=== PATIENT | female | born 1945 | race Caucasian/White ===

== ENCOUNTER 2020-01-08 23:25 | Emergency (ER) | payer MEDICARE, BC ==
[2020-01-08] MEDS: Ondansetron 4 MG/2 ML SDV IVPUSH ONE (23:41)
[2020-01-08] MEDS: HYDROmorphone 2 MG/ML SDV IVPUSH ONE (23:43)
[2020-01-08] MEDS ORDERED: Sodium Chloride 0.9% 1,000 ML IV SCH (23:45)
--- NOTE | 2020-01-09 03:02 | ER ---
HISTORY OF PRESENT ILLNESS: 74-year-old lady who came to the emergency room with severe abdominal pain involving both lower quadrants, even the upper quadrants are tender, but the lower quadrant seemed little worse. She states that she did not feel good yesterday. She was unable to keep any food down and the pain woke her up this evening. She rates her pain as severe 9 or 10 out of 10. She has been nauseated on her regular basis as well. She does not feel that she has been running a fever. No problems with coughing, shortness of breath. The patient states she had some chest pain a couple of days ago, but that is gone. She is not having any trouble breathing or chest pain today. OBJECTIVE: GENERAL APPEARANCE: The patient is awake and alert. She is in obvious pain. VITAL SIGNS: Reviewed. She is afebrile. Pulse is initially 146, blood pressure 209/136. She is diaphoretic. O2 sats are 98%, respirations 20. HEENT: Oral mucous membranes are slightly dry. Tonsils are not enlarged or injected. Pharynx not inflamed. NECK: Supple. LUNGS: Clear. ABDOMEN: Tender with some guarding noted even with light palpation. Bowel sounds are present, but hypoactive. SKIN: Warm and dry. CARDIAC: Heart sounds distinct with rapid ventricular rate. I do not hear any murmurs. INITIAL TREATMENT: An IV was started. The patient was given Zofran 4 mg and Dilaudid 1 mg. This settled down the pain to a comfortable level. The patient is able to now relax. LABORATORY DATA: CBC showing white count of 17,400. Comprehensive metabolic panel shows a slightly elevated creatinine of 1.27, GFR is 41. Liver enzymes are normal. D- dimer is 820. CT of the chest shows a stable mass involving the thyroid, unchanged from prior exams. CT of the abdomen shows the gallbladder is distended, significant wall thickening, and a few calcified gallstones are seen. The patient does have a small amount of ascites overlying the liver and a small amount of free air within the pelvis. DIAGNOSIS: Acute cholecystitis. TREATMENT PLAN: Arrangements are being made to transfer the patient. We are starting with the [facility] per family's request. I also gave the patient Cardizem 20 mg IV, and her vital signs have significantly improved during the course of her stay here. The most recent blood pressure is 147/74 with a pulse being just over 100, O2 sats remain good, last taken at 97%. Addendum; She was transferred to [facility]. After being put on hold for about 90 minutes by Dasia. CRS/MODL /[id number] MTDJose Ramon
--- NOTE | 2020-01-09 09:40 | CT ---
DATE OF SERVICE: 01/08/2020 CLINICAL DATA: Abd pain - heavy heart. UNENHANCED CHEST CT: Multislice acquisition through the chest without IV contrast was performed. Comparison is made to a prior exam dated 10/11/13. There are atelectatic changes in the dependent portions of both lungs and in both lung bases. The lungs otherwise clear. No pneumothorax. No pleural effusions. The heart size is normal. Minimal coronary artery calcifications. No significant pericardial effusion. No hilar or mediastinal adenopathy. The thyroid gland is abnormal. The right lobe is enlarged and there is a mass that projects posterior and inferior to the right lobe of the thyroid. It is partially calcified. It measures 6.5 cm in its maximum dimension. It does produce mass effect on the trachea and esophagus. It does not appear significantly changed from the prior exam of 2013, and is consistent in appearance with a substernal goiter. There is degenerative disk disease throughout the thoracic spine. No lytic or blastic bone lesions. UNENHANCED ABDOMEN AND PELVIC CT: Multislice acquisition through the abdomen and pelvis without IV or oral contrast was performed. No priors. The gallbladder is abnormal. There are multiple gallstones noted within the gallbladder. The gallbladder wall is thickened, and there is pericholecystic fluid consistent with cholecystitis. There is free fluid adjacent to the liver and within the pelvis consistent with ascites. The gallbladder is normal size. It does have slightly lobulated contour suggesting the possibility of cirrhosis. No focal hepatic lesions. No biliary duct dilatation. The spleen appears normal. The pain appears normal. The right and left adrenals appear normal. The right and left kidneys appear normal. No nephrocalcinosis or nephrolithiasis. No hydronephrosis or hydroureter. There is diverticulosis of the descending and sigmoid colon. No evidence of diverticulitis. No evidence of appendicitis. No free air. No free fluid. No dilated loops of bowel. No adenopathy. No aortic aneurysm. There is a small umbilical hernia containing fat. IMPRESSION: 1. Cholelithiasis. Abnormal gallbladder consistent with cholecystitis. Ascites. 2. Other findings as discussed above. [id number] [facility]
== END 2020-01-09 02:22 ==
LOC: LB.ED 23:25
DX: K81.0 Acute cholecystitis (principal)
CPT/HCPCS: 36415; 71250; 74176; 80053; 84484; 85025; 85379; 93005; 96374; 96375; 96376; 99284; 99285-25; A0425; A0429; J1170; J2405

== ENCOUNTER 2021-05-18 18:58 | Emergency (ER) | payer MEDICARE, BC ==
--- NOTE | 2021-05-18 19:55 | EDM.PDOC ---
ED HPI GENERAL MEDICAL PROBLEM - General Chief Complaint: Flank Pain Stated Complaint: flank pain Time Seen by Provider: 05/18/21 19:10 Source of Information: Reports: Patient, Family History Limitations: Reports: No Limitations - History of Present Illness INITIAL COMMENTS - FREE TEXT/NARRATIVE: patient presented to the ER with a c/o back pain radiating to the front of the chest. Also reports intermittent SOB and dry cough that has been going on for 2-3 weeks. No N/V/D. Denies any fever. No h/o CAD, but has a h/o afib for which she is on Eliquis. Symptoms are worst on certain position and with certain activities. Haven't tried anything for pain at home. Non smoker. Onset: Gradual Duration: Week(s): (3) Location: Reports: Chest, Back Quality: Reports: Pressure Severity: Moderate Improves with: Reports: None Worsens with: Reports: Movement Left Flank Pain Score (Numeric/FACES): 6 - Related Data Allergies Allergy/AdvReac Type Severity Reaction Status Date / Time No Known Allergies Allergy Verified 05/18/21 19:22 Home Meds: Home Meds Apixaban [Eliquis] 2.5 mg PO BID 05/18/21 [History] Metoprolol Tartrate 25 mg PO BID 05/18/21 [History] Pravastatin [Pravachol] 10 mg PO BEDTIME 05/18/21 [History] amLODIPine [Norvasc] 5 mg PO DAILY 05/18/21 [History] Past Medical History Cardiovascular History: Reports: Afib, Hypertension Social & Family History - Family History Family Medical History: Unobtainable - Recreational Drug Use Recreational Drug Use: No ED ROS GENERAL - Review of Systems Review Of Systems: See Below Constitutional: Reports: No Symptoms HEENT: Reports: No Symptoms Respiratory: Reports: Cough Cardiovascular: Reports: Dyspnea on Exertion, Palpitations GI/Abdominal: Reports: No Symptoms Musculoskeletal: Reports: No Symptoms Neurological: Reports: No Symptoms ED EXAM, GENERAL - Physical Exam Exam: See Below Exam Limited By: No Limitations General Appearance: Alert, WD/WN, No Apparent Distress Eye Exam: Bilateral Eye: EOMI Head: Atraumatic Respiratory/Chest: No Respiratory Distress, Normal Breath Sounds, No Accessory Muscle Use Cardiovascular: Irregularly Irregular GI/Abdominal: Normal Bowel Sounds, Soft, Non-Tender Neurological: Alert, Oriented, No Motor/Sensory Deficits Psychiatric: Normal Affect #1 Interpretation EKG Date: 05/18/21 Time: 19:48 Rhythm: A-Fib Randolph: LAD-Left Randolph Deviation P-Wave: Absent QRS: RBBB ST-T: Normal QT: Normal Course - Vital Signs Last Recorded V/S: Last Vital Signs Temp 37.2 C 05/18/21 20:32 Pulse 109 H 05/18/21 20:32 Resp 18 05/18/21 20:32 BP 135/79 05/18/21 20:32 Pulse Ox 97 05/18/21 20:32 - Orders/Labs/Meds Orders: Active Orders 24 hr Category Date Time Status Chest 1V Frontal [CR] Stat Exams 05/18/21 19:48 Taken CULTURE URINE [RM] Stat Lab 05/18/21 19:45 Received Casirivimab/Imdevimab [Regen-Cov 600-600 mg/10Ml (Eua)] Med 05/18/21 22:45 Active 10 ml Sodium Chloride 0.9% [Normal Saline] 100 ml IV ONETIME Medication Orders CASIRIVIMAB/IMDEVIMAB 10 ml/ (Sodium Chloride) 110 mls @ 310 mls/hr IV ONETIME ONE Stop: 05/18/21 23:06 Labs: Laboratory Tests 05/18/21 05/18/21 05/18/21 Range/Units 19:45 19:45 19:45 WBC 8.6 D (4.0-11.0) K/uL RBC 5.01 (3.80-5.80) M/uL Hgb 14.4 (11.5-16.5) g/dL Hct 43.9 (37.0-47.0) % MCV 88 (76-96) fL MCH 28.7 (27.0-32.0) pg MCHC 32.8 (31.0-35.0) g/dL RDW 14.7 (11.0-16.0) % Plt Count 233 (150-500) K/uL MPV 10.4 H (6.0-10.0) fL Neut % (Auto) 68.3 (45.0-70.0) % Lymph % (Auto) 20.8 (20.0-40.0) % Rains % (Auto) 10.0 (3.0-10.0) % Eos % (Auto) 0.7 L (1.0-5.0) % Baso % (Auto) 0.2 (0.0-0.5) % Neut # (Auto) 5.85 (2.00-7.50) K/uL Lymph # (Auto) 1.78 (1.50-4.00) K/uL Rains # (Auto) 0.86 H (0.20-0.80) K/uL Eos # (Auto) 0.06 (0.04-0.40) K/uL Baso # (Auto) 0.02 (0.02-0.10) K/uL Sodium 141 (136-145) mmol/L Potassium 3.6 (3.5-5.1) mmol/L Chloride 103 (98-107) mmol/L Carbon Dioxide 24.7 (21.0-32.0) mmol/L Anion Gap 16.9 H (5.0-15.0) mmol/L BUN 24 (8-26) mg/dL Creatinine 1.09 H (0.55-1.02) mg/dL Est Cr Clr Drug Dosing 47.32 mL/min Estimated GFR (MDRD) 49 L (>60) MLS/MIN BUN/Creatinine Ratio 22.0 (6-25) Glucose 119 H (74-100) mg/dL Calcium 9.0 (8.5-10.1) mg/dL Troponin I (0.000-0.060) ng/mL Urine Color Yellow Urine Appearance Clear (CLEAR) Urine pH 5.0 (5.0-8.0) Ur Specific [place] 1.010 (1.003-1.030) Urine Protein Negative (NEGATIVE) mg/dL Urine Glucose (UA) Negative (NEGATIVE) mg/dL Urine Ketones Negative (NEGATIVE) mg/dL Urine Occult Blood Small H (NEGATIVE) Urine Nitrite Negative (NEGATIVE) Urine Bilirubin Negative (NEGATIVE) Urine Urobilinogen 0.2 (0.2-1.0) E.U./dL Ur Leukocyte Esterase Trace H (NEGATIVE) Urine RBC 0-5 H /HPF Urine WBC 0-5 H /HPF Ur Squamous Epith Cells Few /HPF Urine Bacteria Few /HPF SARS-CoV-2 RNA ([place]) (NEGATIVE) 10/26/21 10/26/21 Range/Units 19:48 20:00 WBC (4.0-11.0) K/uL RBC (3.80-5.80) M/uL Hgb (11.5-16.5) g/dL Hct (37.0-47.0) % MCV (76-96) fL MCH (27.0-32.0) pg MCHC (31.0-35.0) g/dL RDW (11.0-16.0) % Plt Count (150-500) K/uL MPV (6.0-10.0) fL Neut % (Auto) (45.0-70.0) % Lymph % (Auto) (20.0-40.0) % Rains % (Auto) (3.0-10.0) % Eos % (Auto) (1.0-5.0) % Baso % (Auto) (0.0-0.5) % Neut # (Auto) (2.00-7.50) K/uL Lymph # (Auto) (1.50-4.00) K/uL Rains # (Auto) (0.20-0.80) K/uL Eos # (Auto) (0.04-0.40) K/uL Baso # (Auto) (0.02-0.10) K/uL Sodium (136-145) mmol/L Potassium (3.5-5.1) mmol/L Chloride (98-107) mmol/L Carbon Dioxide (21.0-32.0) mmol/L Anion Gap (5.0-15.0) mmol/L BUN (8-26) mg/dL Creatinine (0.55-1.02) mg/dL Est Cr Clr Drug Dosing mL/min Estimated GFR (MDRD) (>60) MLS/MIN BUN/Creatinine Ratio (6-25) Glucose (74-100) mg/dL Calcium (8.5-10.1) mg/dL Troponin I < 0.017 (0.000-0.060) ng/mL Urine Color Urine Appearance (CLEAR) Urine pH (5.0-8.0) Ur Specific [place] (1.003-1.030) Urine Protein (NEGATIVE) mg/dL Urine Glucose (UA) (NEGATIVE) mg/dL Urine Ketones (NEGATIVE) mg/dL Urine Occult Blood (NEGATIVE) Urine Nitrite (NEGATIVE) Urine Bilirubin (NEGATIVE) Urine Urobilinogen (0.2-1.0) E.U./dL Ur Leukocyte Esterase (NEGATIVE) Urine RBC /HPF Urine WBC /HPF Ur Squamous Epith Cells /HPF Urine Bacteria /HPF SARS-CoV-2 RNA ([place]) Positive H (NEGATIVE) Meds: Medications Generic Name Dose Route Start Last Admin Trade Name Freq PRN Reason Stop Dose Admin CASIRIVIMAB/IMDEVIMAB 10 ml/ 110 mls @ 310 mls/hr 05/18/21 22:45 Sodium Chloride IV 05/18/21 23:06 ONETIME ONE Discontinued Medications Generic Name Dose Route Start Last Admin Trade Name Freq PRN Reason Stop Dose Admin Albuterol Confirm 05/18/21 21:51 05/18/21 21:58 Albuterol 8 Gm Inhaler Administered 05/18/21 21:52 Not Given Dose 8 gm .ROUTE .STK-MED ONE Morphine Sulfate 2 mg 05/18/21 20:25 05/18/21 20:27 Morphine 2 Mg/Ml Syringe IVPUSH 05/18/21 20:26 2 mg ONETIME ONE Administration Morphine Sulfate Confirm 05/18/21 20:37 05/18/21 20:39 Morphine 2 Mg/Ml Syringe Administered 05/18/21 20:38 Not Given Dose 2 mg .ROUTE .STK-MED ONE Morphine Sulfate 2 mg 05/18/21 21:27 05/18/21 21:31 Morphine 2 Mg/Ml Syringe IVPUSH 05/18/21 21:28 2 mg ONETIME ONE Administration Morphine Sulfate Confirm 05/18/21 21:36 05/18/21 21:32 Morphine 2 Mg/Ml Syringe Administered 05/18/21 21:37 Not Given Dose 2 mg .ROUTE .STK-MED ONE - Re-Assessments/Exams Free Text/Narrative Re-Assessment/Exam: EKG - showed afib that is known. CXR no infiltrates labs - CBC, BMP and Trop - WNL but COVID was +Ve Ventolin was given - reports feels much better discussed the option of mono clonal antibodies - patient and daughter agreed. Started an IV infusion in the ER as an outpatient management given that patient is a high for age and heart comorbidities. Departure - Departure Time of Disposition: 21:57 Disposition: Home, Self-Care 01 Condition: Good Clinical Impression: Bronchitis due to COVID-19 virus - Discharge Information *PRESCRIPTION DRUG MONITORING PROGRAM REVIEWED*: Not Applicable *COPY OF PRESCRIPTION DRUG MONITORING REPORT IN PATIENT FATOUMATA: Not Applicable Instructions: COVID-19, Symptoms of COVID-19 - [facility] (09/14/2020) Referrals: PCP,Unknown [Primary Care Provider] - Forms: ED Department Discharge Additional Instructions: - increase fluids intake - use inhaler as prescribed - isolation for 14 days and frequent hands hygiene - follow up with the PCP -in 1-2 weeks as needed Sepsis Event Note (ED) - Evaluation Sepsis Screening Result: No Definite Risk - Focused Exam Vital Signs: Vital Signs Temp Pulse Resp BP Pulse Ox 05/18/21 20:32 37.2 C 109 H 18 135/79 97 05/18/21 19:16 37.1 C 123 H 18 150/77 H 98 - Problem List & Annotations (1) Bronchitis due to COVID-19 virus SNOMED Code(s): 643614280394214629 Code(s): U07.1 - COVID-19; J40 - BRONCHITIS, NOT SPECIFIED ACUTE OR CHRONIC Status: Acute Priority: Low Current Visit: Yes - Problem List Review Problem List Initiated/Reviewed/Updated: Yes - My Orders Last 24 Hours: My Active Orders 05/18/21 19:45 CULTURE URINE [RM] Stat 05/18/21 19:48 Chest 1V Frontal [CR] Stat 05/18/21 22:45 Casirivimab/Imdevimab [Regen-Cov 600-600 mg/10Ml (Eua)] 10 ml Sodium Chloride 0.9% [Normal Saline] 100 ml IV ONETIME - Assessment/Plan Last 24 Hours: My Active Orders 05/18/21 19:45 CULTURE URINE [RM] Stat 05/18/21 19:48 Chest 1V Frontal [CR] Stat 05/18/21 22:45 Casirivimab/Imdevimab [Regen-Cov 600-600 mg/10Ml (Eua)] 10 ml Sodium Chloride 0.9% [Normal Saline] 100 ml IV ONETIME Plan: - increase fluids intake - use inhaler as prescribed - isolation for 14 days and frequent hands hygiene - follow up with the PCP -in 1-2 weeks as needed
[2021-05-18] MEDS: Morphine 2 MG/ML SYRINGE IVPUSH ONE ×2 (20:27→21:31)
[2021-05-18] MEDS: Morphine 2 MG/ML SYRINGE ONE ×2 (20:39→21:32)
[2021-05-18] MEDS: Albuterol 8 GM Inhaler ONE (21:58)
[2021-05-18] MEDS ORDERED: Albuterol 8 GM Inhaler ONE (23:00)
--- NOTE | 2021-05-19 08:24 | CR ---
Date of Service: 05/18/21 Clinical Data: cough AP PORTABLE CHEST: Comparison is made to a prior exam dated 08/19/20. The heart size is normal. There is a persistent mass in the superior mediastinum to the right of the trachea with displacement of the trachea to the left most likely representing a substernal goiter. It does appear to be increased in size from the prior study. The lungs are clear. No pneumothorax. No pleural effusions. The exam is otherwise unchanged from the prior. [id number] [facility]
== END 2021-05-18 23:20 | disposition home or self-care (01) ==
LOC: LB.ED 18:58
DX: U07.1 COVID-19 (principal); J40 Bronchitis, not specified as acute or chronic; I48.91 Unspecified atrial fibrillation; I10 Essential (primary) hypertension; I45.10 Unspecified right bundle-branch block; Z79.01 Long term (current) use of anticoagulants; Z79.899 Other long term (current) drug therapy
CPT/HCPCS: 36415; 71045; 80048; 81001; 84484; 85025; 87086; 93005; 96374; 96376; 99285; A9270; J2270; M0243; Q0243; U0002

== ENCOUNTER 2024-03-20 15:40 | Emergency (ER) | payer MEDICARE, BC ==
[2024-03-20 16:14] LABS: BASOPHILS ABSOLUTE AUTO 0.02 K/uL (0.02-0.10); BASOPHILS PERCENT AUTO 0.3 % (0.0-0.5); EOSINOPHILS ABSOLUTE AUTO 0.09 K/uL (0.04-0.40); EOSINOPHILS PERCENT AUTO 1.3 % (1.0-5.0); HEMATOCRIT 44.4 % (37.0-47.0); HEMOGLOBIN 14.5 g/dL (11.5-16.5); LYMPHOCYTES ABSOLUTE AUTO 2.61 K/uL (1.50-4.00); LYMPHOCYTES PERCENT AUTO 39.1 % (20.0-40.0); MEAN CORPUSCULAR HEMOGLOBIN 29.4 pg (27.0-32.0); MEAN CORPUSCULAR HGB CONC 32.7 g/dL (31.0-35.0); MEAN CORPUSCULAR VOLUME 90 fL (76-96); MEAN PLATELET VOLUME 10.5 fL (6.0-10.0); MONOCYTES ABSOLUTE AUTO 0.52 K/uL (0.20-0.80); MONOCYTES PERCENT AUTO 7.8 % (3.0-10.0); NEUTROPHILS ABSOLUTE AUTO 3.44 K/uL (2.00-7.50); NEUTROPHILS PERCENT AUTO 51.5 % (45.0-70.0); PLATELET COUNT,PLT 185 K/uL (150-500); RED BLOOD CELL COUNT 4.94 M/uL (3.80-5.80); RED CELL DISTRIBUTION WIDTH 14.5 % (11.0-16.0); WHITE BLOOD CELL COUNT,WBC 6.7 K/uL (4.0-11.0)
[2024-03-20] MEDS: Aspirin 81 MG Tab.Chew PO ONE (16:20)
[2024-03-20 16:37] LABS: A/G RATIO 1.1 (0.8-2.0); ALBUMIN 3.5 g/dL (3.4-5.0); ANION GAP 12.1 mmol/L (5.0-15.0); BILIRUBIN TOTAL 0.9 mg/dL (0.0-1.0); CALCIUM 8.7 mg/dL (8.5-10.1); CARBON DIOXIDE,CO2 27.4 mmol/L (21.0-32.0); CREATININE 1.15 mg/dL (0.55-1.02); EST CRCL DRUG DOSING (CG) 38.35 mL/min; MAGNESIUM 1.9 mg/dL (1.8-2.4); PHOSPHORUS 3.3 mg/dL (2.5-4.9); POTASSIUM,K 3.5 mmol/L (3.5-5.1); PROTEIN TOTAL,TP 6.6 g/dL (6.4-8.2); TROPONIN I HIGH SENSITIVITY 6.2 pg/ml (<=60.4)
[2024-03-20] MEDS: Calcium Carbonate 500 MG Tab.Chew PO ONE (17:00)
== END 2024-03-20 17:13 | disposition home or self-care (01) ==
LOC: LB.ED 15:40
DX: R07.9 Chest pain, unspecified (principal); I10 Essential (primary) hypertension; I48.91 Unspecified atrial fibrillation; Z90.49 Acquired absence of other specified parts of digestive tract; Z79.01 Long term (current) use of anticoagulants; Z79.899 Other long term (current) drug therapy
CPT/HCPCS: 36415; 71045; 80053; 83735; 84100; 84484; 85025; 85379; 93005; 99285; A9270